=== PATIENT | male | born 1965 | race Two or more races ===

== ENCOUNTER 2018-02-18 09:49 | Emergency (ER) | payer OTHER ==
[2018-02-18] MEDS ORDERED: DIPH/PERTUSS(ACELL)/TETANUS VAC/PF 0.5 ML SYR (>=10YO) IM ONE (10:05)
--- NOTE | 2018-02-18 10:06 | ER Document Report ---
ED Medical Screen (RME) - General Chief Complaint: Hand Injury Stated Complaint: HAND INJURY Time Seen by Provider: 02/18/18 10:02 Notes: RAPID MEDICAL EVALUATION DISCLOSURE I have seen this patient as part of a Rapid Medical Evaluation and, if applicable, placed any initially appropriate orders. The patient will be seen and fully evaluated, including a full history and physical exam, by a provider (in Main ED or Fast Track) when a room becomes available. 52-year-old male here with complaints of left pinky finger pain after he accidentally hit his finger with a hammer approximately 4 hours ago. He had some bleeding that was controlled with pressure application at the urgent care facility. The urgent care facility told him to come here for further evaluation. He does not remember when he received his last tetanus booster. EXAM Left fifth finger with traumatic laceration No active bleeding - Related Data Allergies/Adverse Reactions: No Known Allergies Allergy (Unverified 02/18/18 09:50) Physical Exam - Vital signs Vitals: Temp Pulse Resp BP Pulse Ox 98.2 F 73 14 157/96 H 98 02/18/18 09:58 02/18/18 09:58 02/18/18 09:58 02/18/18 09:58 02/18/18 09:58 Course - Vital Signs Vital signs: Temp Pulse Resp BP Pulse Ox 98.2 F 73 14 157/96 H 98 02/18/18 09:58 02/18/18 09:58 02/18/18 09:58 02/18/18 09:58 02/18/18 09:58
--- NOTE | 2018-02-18 10:35 | RADIOLOGY REPORT (SQ) ---
EXAM DESCRIPTION: FINGER LEFT COMPLETED DATE/TIME: 02/18/2018 10:26 am REASON FOR STUDY: trauma to pinky finger COMPARISON: None. NUMBER OF VIEWS: Three views. TECHNIQUE: AP, lateral, and oblique images acquired of the left fifth finger. LIMITATIONS: None. FINDINGS: MINERALIZATION: Normal. BONES: Displaced comminuted fracture of the tuft. SOFT TISSUES: No soft tissue swelling. No foreign body. OTHER: No other significant finding. IMPRESSION: DISPLACED COMMINUTED FRACTURE OF THE TUFT OF THE LEFT FINGER. TECHNICAL DOCUMENTATION: JOB ID: [id number] [employer]- All Rights Reserved Reading location - IP/workstation name: [email or web address]
[2018-02-18] MEDS ORDERED: LIDOCAINE 1% INJ-PF (10 MG/ML) 30 ML SDV INJ ONE (11:03)
--- NOTE | 2018-02-18 11:12 | ER Document Report ---
ED General - General Chief Complaint: Hand Injury Stated Complaint: HAND INJURY Time Seen by Provider: 02/18/18 10:02 - HPI Notes: Patient is a 52-year-old male with no significant past medical history who presents to the emergency department complaining of left finger injury and laceration from incident at work 4 hours ago. Patient states that he had a hammer injury. Patient is accompanied by his coworker who speaks Bulgarian very well and states that he does not need a lab clerk. I did review with patient that if he desires a translation service that we will be more than happy to provide one if they do not understand anything to let me know. Patient states that the pain does not radiate. They have had the bleeding controlled since they were evaluated at urgent care prior to arrival. Patient is unsure of his last tetanus. No other concerns or complaints. Denies any headache, fever, URI, sore throat, chest pain, palpitations, syncope, cough, shortness of breath, wheeze, dyspnea, abdominal pain, nausea/vomiting/diarrhea, urinary retention, dysuria, hematuria, or rash. - Related Data Allergies/Adverse Reactions: No Known Allergies Allergy (Verified 02/18/18 11:14) Past Medical History - Social History Smoking Status: Current Every Day Smoker Chew tobacco use (# tins/day): No Frequency of alcohol use: Occasional Drug Abuse: None Family History: Reviewed & Not Pertinent Patient has suicidal ideation: No Patient has homicidal ideation: No Renal/ Medical History: Denies: Hx Peritoneal Dialysis Review of Systems - Review of Systems -: Yes All other systems reviewed and negative Physical Exam - Vital signs Vitals: Temp Pulse Resp BP Pulse Ox 98.2 F 73 14 157/96 H 98 02/18/18 09:58 02/18/18 09:58 02/18/18 09:58 02/18/18 09:58 02/18/18 09:58 - Notes Notes: PHYSICAL EXAMINATION: GENERAL: Well-appearing, well-nourished and in no acute distress. LUNGS: Breath sounds clear to auscultation bilaterally and equal. No wheezes rales or rhonchi. HEART: Regular rate and rhythm without murmurs, rubs, gallops. Musculoskeletal: Left 5th digit: LROM to passive/active at the DIP. Strength 4+/5. N/V intact. + irregular superficial 1.3cm laceration noted to the anterolateral surface distally. + tenderness to the tuft. Extremities: No cyanosis, clubbing, or edema b/l. Peripheral pulses 2+. Capillary refill less than 3 seconds. NEUROLOGICAL: Normal speech, normal gait. Normal sensory, motor exams PSYCH: Normal mood, normal affect. SKIN: See above. Course - Re-evaluation Re-evalutation: 02/18/18 11:50 Patient is an afebrile, well-hydrated, 52-year-old male who presents to the ED with an open fracture to the left distal finger with associated comminuted displaced tuft fracture. Vitals are currently acceptable without any significant tachycardia, tachypnea, or hypoxia. The PE is otherwise unremarkable for any significant neurovascular compromise, obvious tendon/ligament rupture, septic joint. See XR result. Wound was thoroughly irrigated and cleansed. Wound edges were approximated as appropriately as possible to the swelling with 2 simple interrupted/1 horizontal mattress suture. Wound dressing was placed and wound instructions reviewed. Splint applied. Patient was given a tetanus update today as well. Patient is nontoxic- appearing. No other labs or imaging warranted at this time based on H&P. I will send him home with a prescription for Keflex. Conservative measures otherwise for symptoms. Recheck with your PCM in 3-5 days. Call orthopedics tomorrow to schedule an appointment for further evaluation and management. Return to the ED with any worsening/concerning symptoms otherwise as reviewed in discharge. Patient is in agreement. - Vital Signs Vital signs: Temp Pulse Resp BP Pulse Ox 98.2 F 73 14 157/96 H 98 02/18/18 09:58 02/18/18 09:58 02/18/18 09:58 02/18/18 09:58 02/18/18 09:58 Procedures - Laceration/Wound Repair Left Finger 5th digit Time completed: 11:45 Wound length (cm): 1.3 Wound's Depth, Shape: Superficial, Irregular Laceration pre-procedure: Sterile PPE donned, Sterile drapes applied, Other - chlorhexadine/saline Anesthetic type: 1% Lidocaine Volume Anesthetic (mLs): 8 - digital block Wound explored: Clean, No foreign body removed Irrigated w/ Saline (mLs): 120 Wound Debrided: Minimal Wound Repaired With: Sutures Suture Size/Type: 4:0, Nylon Number of Sutures: 3 - 2 simple and 1 horizon sujatha. Layer Closure?: No Post-procedure wound care: Sterile dressing applied, Splint applied Post-procedure NV exam normal: Yes Complications: No Discharge - Discharge Clinical Impression: Open fracture of finger of left hand Qualifiers: Encounter type: initial encounter Finger: little finger Phalanx: distal Fracture alignment: displaced Qualified Code(s): S62.637B - Displaced fracture of distal phalanx of left little finger, initial encounter for open fracture Condition: Stable Disposition: HOME, SELF-CARE Instructions: Open Finger Tuft Fracture ([facility]) Additional Instructions: Rest, Ice, Compression, Elevation Use splint as directed Wound dressing changes as directed Take antibiotic as directed Tylenol/ibuprofen as needed F/u with your PCP in 3-5 days for a recheck Call orthopedics tomorrow to schedule an appointment for further evaluation and management Return to the ED with any worsening symptoms and/or development of fever, headache, chest pain, palpitations, syncope, shortness of breath, trouble breathing, abdominal pain, n/v/d, muscle weakness/paralysis, numbness/tingling, swelling, redness, or other worsening symptoms that are concerning to you. Prescriptions: Cephalexin Monohydrate [Keflex 500 mg Capsule] 500 mg PO TID #30 capsule Hydrocodone/Acetaminophen [[place] 5-325 mg Tablet] 1 tab PO TID #10 tablet Forms: Elevated Blood Pressure, Smoking Cessation Education Referrals: [facility] [Provider Group] - 02/20/18
[2018-02-18 12:34] VITALS: BP 139/84
== END 2018-02-18 12:55 | disposition home or self-care (01) ==
LOC: ER 09:49
PROC: 0HQGXZZ Repair Left Hand Skin, External Approach (ICD-10-PCS; principal; 2018-02-18)
DX: S62.637B Displaced fracture of distal phalanx of left little finger, initial encounter for open fracture (principal); W22.8XXA Striking against or struck by other objects, initial encounter; Y99.0 Civilian activity done for income or pay; F17.200 Nicotine dependence, unspecified, uncomplicated
CPT/HCPCS: 99283; 90471; 73140; 90715; 12001; J3490